=== PATIENT | female | born 1935 ===

== ENCOUNTER 2020-08-04 07:53 | Inpatient (IN) | payer OTHER ==
[~2020-08-04] VITALS: Ht 152.4 cm; Wt 45.4 kg
[~2020-08-04 07:53] MED LIST: COZAAR50 MG PO; LEVAQUIN500 MG PO; PROBIOTIC1 EACH PO; PROVENTIL HFA6.7 GM
[2020-08-04] MEDS ORDERED: CLONAZEPAM1 MG (08:29)
== END 2020-08-10 11:21 | disposition expired | DRG 291 ==
LOC: ER 07:53 → ICU-2 18:05 → ICU 08-09 02:39
PROVIDERS: ADMIT Internal Medicine; ATTEND Internal Medicine
PROC: 5A09557 Assistance with Respiratory Ventilation, Greater than 96 Consecutive Hours, Continuous Positive Airway Pressure (ICD-10-PCS; principal; 2020-08-04)
PROC: 02HV33Z Insertion of Infusion Device into Superior Vena Cava, Percutaneous Approach (ICD-10-PCS; 2020-08-05)
PROC: B24BZZZ Ultrasonography of Heart with Aorta (ICD-10-PCS; 2020-08-05)
PROC: 0BH17EZ Insertion of Endotracheal Airway into Trachea, Via Natural or Artificial Opening (ICD-10-PCS; 2020-08-10)
DX: I11.0 Hypertensive heart disease with heart failure (principal); R65.21 Severe sepsis with septic shock; A41.9 Sepsis, unspecified organism; N17.8 Other acute kidney failure; E87.1 Hypo-osmolality and hyponatremia; N39.0 Urinary tract infection, site not specified; I47.1 Supraventricular tachycardia; I50.23 Acute on chronic systolic (congestive) heart failure; E87.5 Hyperkalemia; Z20.822 Contact with and (suspected) exposure to COVID-19; E86.0 Dehydration; R77.8 Other specified abnormalities of plasma proteins; R57.0 Cardiogenic shock; I50.811 Acute right heart failure; J44.9 Chronic obstructive pulmonary disease, unspecified